=== PATIENT | female | born 1955 ===

== ENCOUNTER 2019-09-07 08:58 | Day surgery (SDC) | payer OTHER ==
[~2019-09-07] VITALS: Ht 162.6 cm; Wt 77.1 kg
[2019-09-07 09:39] VITALS: BP 145/72
[2019-09-07 12:20] VITALS: BP 136/61
== END 2019-09-07 11:25 | disposition home or self-care (01) ==
LOC: GI 08:58 → OR 10:00 → GI 10:00 → OR 11:00 → GI 11:25 → OR 12:00
DX: K59.09 Other constipation (principal); K63.89 Other specified diseases of intestine; K57.30 Diverticulosis of large intestine without perforation or abscess without bleeding; K76.0 Fatty (change of) liver, not elsewhere classified; E11.9 Type 2 diabetes mellitus without complications; Z79.899 Other long term (current) drug therapy; Z96.651 Presence of right artificial knee joint
CPT/HCPCS: 45378; 85060; J1200; J1610; J2250; J2310; J3010; J3490